=== PATIENT | female | born 1975 ===

== ENCOUNTER 2016-11-03 07:17 | Day surgery (SDC) | payer MEDICAID ==
[2016-11-01 08:30] VITALS: BMI 20.3
[2016-11-03] MEDS ORDERED: Lidocaine 1% w Epi 1:100,000 Inj ONE (08:41)
[2016-11-03] MEDS ORDERED: Oxymetazoline 0.05% Nasal Spray (30 ml) NS ONE (08:41)
[2016-11-03] MEDS ORDERED: ceFAZolin IV 1 gm in Dextrose 100 ML IVPB ONE (08:41)
[2016-11-03] MEDS ORDERED: Acetaminophen-Codeine 300/30 mg Tab PO PRN (09:04)
[2016-11-03] MEDS ORDERED: Midazolam 2 MG/2 ML VIAL ONE (09:05)
[2016-11-03] MEDS ORDERED: Propofol 10 mg/ml Inj (20 ML) ONE (09:05)
[2016-11-03] MEDS ORDERED: Lactated Ringer's 1,000 ML IV ONE ×2 (09:05→09:31)
[2016-11-03] MEDS ORDERED: Succinylcholine Chloride 20 mg/ml Syr (5 ml) IV ONE (09:06)
[2016-11-03] MEDS ORDERED: Dextrose 5%/0.45% NS 1,000 ML IV SCH (09:15)
--- NOTE | 2016-11-03 10:12 | OP ---
PROCEDURE DATE: 11/03/2016 PREOPERATIVE DIAGNOSIS: Left nasal mass. POSTOPERATIVE DIAGNOSIS: Left nasal mass. PROCEDURE: Endoscopic left nasal mass biopsy. SIGNIFICANT FINDINGS: Left nasal mass. DESCRIPTION OF PROCEDURE: The patient was brought in the room, placed in supine position. Anesthesi a was initiated through an ET tube. Afrin-soaked pledgets were inserted in the nasal cavity, remaine d there for at least 5 minutes and removed. A 0-degree scope was inserted into the left nasal cavity . Nasal mass was noted emanating from the middle meatus. It was injected with lidocaine with epinep hrine. Multiple biopsies were taken using forceps. Bleeding was controlled using suction cautery. Scope was removed. The patient was taken off anesthesia and taken to recovery room in stable manner. Clem Wan MD cc: [id number] TT: 11/03/2016 10:11:31 mt
[2016-11-03 12:18] VITALS: BP 100/61; PULSE 60; RESP 18; TEMP 97; O2SAT 100
== END 2016-11-03 12:15 | disposition home or self-care (01) ==
LOC: C.SDS 07:17
PROVIDERS: ATTEND Otolaryngology
DX: J33.8 Other polyp of sinus (principal)
CPT/HCPCS: 31237; 88304; J0690; J1100; J2001; J2250; J2405; J2704; J3010; J7030; J7120

== ENCOUNTER 2017-01-11 06:11 | Day surgery (SDC) | payer MEDICAID ==
[2016-12-28 13:34] VITALS: BMI 20.3
[2017-01-11] MEDS ORDERED: Lactated Ringer's 1,000 ML IV ONE ×2 (07:23)
[2017-01-11] MEDS ORDERED: ceFAZolin IV 1 gm in Dextrose 1 GM/50 ML BAG IVPB ONE (07:23)
[2017-01-11] MEDS ORDERED: EPINEPHrine 1:1000 Nasal Sol(30mL) ONE (07:24)
[2017-01-11] MEDS ORDERED: Lidocaine 2% w Epi 1:100,000 Inj IJ ONE (07:24)
[2017-01-11] MEDS ORDERED: Acetaminophen-Codeine 300/30 mg Tab PO PRN (07:34)
[2017-01-11] MEDS ORDERED: Propofol 10 mg/ml Inj (20 ML) ONE (07:35)
[2017-01-11] MEDS ORDERED: Midazolam 2 MG/2 ML VIAL ONE (07:37)
[2017-01-11] MEDS ORDERED: Dextrose 5%/0.45% NS 1,000 ML IV SCH (07:45)
[2017-01-11] MEDS ORDERED: Neostigmine Methylsulfate 3mg/3ml Syringe IV ONE (08:47)
[2017-01-11] MEDS: HYDROmorphone 0.5 mg/0.5 ml ISec IVP PRN ×2 (09:15→09:30)
[2017-01-11] MEDS ORDERED: Scopolamine 1.5 mg/24 hr Patch TD SCH (09:15)
[2017-01-11 10:59] VITALS: BP 1123/71; PULSE 69; RESP 18; TEMP 97.4; O2SAT 100
--- NOTE | 2017-01-11 12:49 | OP ---
PROCEDURE DATE: 01/11/2017 PREOPERATIVE DIAGNOSES: Deviated septum, enlarged turbinates, sinusitis. POSTOPERATIVE DIAGNOSES: Deviated septum, enlarged turbinates, sinusitis. PROCEDURE: Septoplasty, endoscopic bilateral maxillary antrostomy, endoscopic bilateral ethmoidectom y, endoscopic bilateral inferior turbinate reduction. 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 DESCRIPTION OF PROCEDURE: The patient was brought in room, placed in supine position. Anesthesia wa s initiated through an ET tube. Adrenaline-soaked pledgets were inserted into the nasal cavity. The y remained there for at least 5 minutes and removed. Navigation was set up and used throughout the c ase in order to ensure that the skull base and orbit were not entered. The patient was draped in the usual manner. The septum was injected with lidocaine with epinephrine on both sides. A [place]'s i ncision was made on the left and a mucoperichondrial flap was raised. A vertical incision was made i n the cartilage leaving a 1.5 cm anterior and superior strut and a mucoperichondrial flap was raised on the other side. Deviated portion of the septum were removed using forceps. A quilting suture was used to suture the 2 flaps together and close the [place]'s incision. Next, a 0 degree scope was in serted in the nasal cavity. The inferior turbinates were noted to be enlarged and reduced in size go ing from an inferior to superior, anterior to posterior direction on both sides, first on the left, t hen on the right. Suction cautery was used to control the bleeding. Next, attention was turned to t he left. The middle turbinate was injected with lidocaine with epinephrine and medialized. The unci hilda process was medialized. At that point, polyps were noted emanating from the middle meatus. The debrider was used to debride the polyps from the middle meatus and remove the uncinate process. Nex t, the debrider was used to enter the ethmoid bulla inferomedially, going posteriorly to the basal [place], then anteriorly and superiorly until the ethmoid bulla was removed. The basal lamella was ent ered. Posterior ethmoid cells were entered and opened. The skull base was identified and followed a nteriorly all the way to the area of the anterior ethmoid air cells. The curved suction hooked up to navigation was used to locate the maxillary antrum which was noted to be stenosed and opened using f orceps. Antrostomy was made using forceps and debrider. Next, attention was turned to the other side . The middle turbinate was injected with lidocaine with epinephrine. The uncinate process was media lized using a Beatrice elevator after the middle turbinate was medialized. Polyps were noted in the are a of the middle meatus and removed using a debrider. Next, forceps were used to remove the uncinate process. A debrider was used to enter the ethmoid bulla inferomedially, going posteriorly to the bas al lamella, then anteriorly and superiorly until the ethmoid bulla was removed. The basal lamella wa s entered. Posterior ethmoid cells were entered and opened. The skull base was identified and follo wed anteriorly, all the way to the area of the anterior ethmoid air cells. A curved suction hooked u p to navigation was used to locate the maxillary antrum which was noted to be stenosed and opened usi ng forceps and debrider. At that point, bleeding was controlled using adrenaline-soaked pledgets. S tents were placed. Splints were placed. The patient was taken off of anesthesia and taken to the re covery room in stable manner. Clem Wan MD cc: [id number] TT: 01/11/2017 12:48:46 christian
== END 2017-01-11 13:32 | disposition home or self-care (01) ==
LOC: C.SDS 06:11
PROVIDERS: ATTEND Otolaryngology
DX: J34.2 Deviated nasal septum (principal); J34.3 Hypertrophy of nasal turbinates; J32.0 Chronic maxillary sinusitis
CPT/HCPCS: 30802; 31255; 31267; 88304; J0690; J1100; J1170; J2250; J2704; J2710; J3010; J7120